=== PATIENT | male | born 1980 | race Caucasian/White ===

== ENCOUNTER 2017-06-29 09:39 | Emergency (ER) | payer OTHER ==
--- NOTE | 2017-06-29 11:06 | EDPHY ---
H & P Stated Complaint: Flu sxs x several days Source: Patient Exam Limitations: No limitations - Personal History Current Tetanus Diphtheria and Acellular Pertussis (TDAP): Yes - Medical/Surgical History Other PMH: Hodgkins lymphoma - Social History Smoking Status: Never smoked Time Seen by Provider: 06/29/17 11:05 HPI/ROS: HPI: This is a 36-year-old male presents with Chief Complaint: Flu sxs x several days Location: Body Quality: Aches Duration: 2-3 days Signs and Symptoms: + fever, no nausea, no vomiting, no diarrhea, no back pain, no urinary symptoms, no testicular/groin pain, no indigestion, no chest pain, no shortness of breath, + cough, + nasal congestion, + fatigue, + postnasal drip Timing: Sudden onset, constant Severity: Moderate to severe Context: Patient is here with his who has similar complaints, reports that on he started to experience a tickle in the back of his throat accompanied by fatigue and low-grade fever. Friday he had nasal congestion and sinus pressure accompanied by low-grade fever. Friday he started with body aches and fatigue and dried nonproductive cough. He reports his appetite is decreased. Did not receive his influenza vaccine this year. No history of asthma/COPD/tobacco use. Modifying Factors: NyQuil, Tylenol transient relief Comment: ROS: see HPI Constitutional: + fever, + chills, no weight loss Eyes: No blurred vision Respiratory: No shortness of breath, +cough Cardiovascular: No chest pain, no palpitations Gastrointestinal: No nausea, no vomiting, no diarrhea, no hematemesis, no blood in stool Genitourinary: No dysuria, no blood in urine Extremities: No myalgias, no edema Neurologic: No weakness, no numbness Skin: No rashes, no petechiae Hematologic: No bruising, no bleeding MEDICAL/SURGICAL/SOCIAL HISTORY: Medical history: Hodgkin's lymphoma, BPH Surgical history: Denies Social history: CONSTITUTIONAL: Very pleasant adult white male, awake and alert, no obvious distress HEENT: Atraumatic and normocephalic, PERRL, EOMI. Tympanic membranes clear. Oropharynx clear, no exudate and moist pink mucosa. Airway patent. No lymphadenopathy. No meningismus. Cardiovascular: Normal S1/S2, mild tachycardia, regular rhythm, without murmur rub or gallop. PULMONARY/CHEST: Symmetrical and nontender. Clear to auscultation bilaterally. Good air movement. No accessory muscle usage. ABDOMEN: Soft, nondistended, nontender, no rebound, no guarding, no peritoneal signs, no masses or organomegaly. No CVAT. EXTREMITIES: 2/2 pulses, strength 5/5, no deformities, no clubbing, no cyanosis or edema. NEUROLOGICAL: no focal neuro deficits. GCS 15. SKIN: Warm and dry, no erythema. no rash. Good capillary refill. (Alla García) Constitutional: Initial Vital Signs Temperature (C) 37.3 C 06/29/17 09:45 Heart Rate 118 H 06/29/17 09:45 Respiratory Rate 18 06/29/17 09:45 Blood Pressure 125/84 H 06/29/17 09:45 O2 Sat (%) 96 06/29/17 09:45 O2 Delivery Mode Room Air Allergies/Adverse Reactions: No Known Allergies Allergy (Unverified 06/29/17 09:52) Home Medications: Medication Instructions Recorded Codeine Phosphate/Guaifenesin 10 ml PO Q4 PRN #120 ml 06/29/17 [Guaifen-Codeine 200-20 mg/10Ml] Cyclobenzaprine [Flexeril 10 MG 10 mg PO TID PRN #10 tab 06/29/17 (*)] Tamsulosin HCl [Flomax 0.4 MG (*)] 0.4 mg PO 06/29/17 Medical Decision Making ED Course/Re-evaluation: Chest x-ray, labs, IV fluids, influenza, IV medications ordered Mild tachycardia noted upon arrival. Given 1 L normal saline, IV Toradol and Tessalon Perles with adequate relief Influenza A positive Symptoms 40-72 hours; no longer Tamiflu candidate; advised supportive care Chest x-ray my read signs of pneumonia, effusion, pneumothorax, widened mediastinum Labs grossly unremarkable 1300: reassessed patient, who advises he feels considerably better. This patient was seen under the supervision of my secondary supervising physician. I evaluated care for this patient independently. Discussed this patient with Dr. Ortiz who did not see the patient. (Alla García) The patient was evaluated and managed by the physician assistant auto center manager. I have reviewed this chart and I agree with the findings and plan of care as documented , as indicated by my signature. I am the secondary supervising physician. ( Nohelia Ortiz) Differential Diagnosis: Adult fever including but not limited to viral syndromes including influenza, urinary tract infection, pneumonia and sepsis. (Alla García) - Data Points Laboratory Results: Laboratory Results 06/29/17 11:29 06/29/17 11:29 Medications Given: Discontinued Medications Benzonatate (Tessalon Pearles) 200 mg PO EDNOW ONE Stop: 06/29/17 11:14 Last Admin: 06/29/17 11:36 Dose: 200 mg Sodium Chloride (Ns) 1,000 mls @ 0 mls/hr IV ONCE ONE; Wide Open PRN Reason: Protocol Stop: 06/29/17 11:13 Last Admin: 06/29/17 11:35 Dose: 1,000 mls Ketorolac Tromethamine (Toradol) 30 mg IVP EDNOW ONE Stop: 06/29/17 11:14 Last Admin: 06/29/17 11:35 Dose: 30 mg Ondansetron HCl (Zofran) 4 mg IVP EDNOW ONE Stop: 06/29/17 11:34 Last Admin: 06/29/17 11:35 Dose: 4 mg Departure - Departure Disposition: Home, Routine, Self-Care Clinical Impression: Influenza A Condition: Good Instructions: Influenza (ED) Additional Instructions: You tested positive for influenza A today in the emergency room. Unfortunately you are not a candidate for Tamiflu. Please rest as much as possible and drink plenty of fluids to prevent dehydration. Take Tylenol 650 mg every 4 hours and/or Ibuprofen 600 mg every 8 hours with food as needed for pain. Take Sudafed every 6 hr as needed for nasal congestion/sinus pressure. Referrals: PETER REYES [Other] - As per Instructions Prescriptions: Codeine Phosphate/Guaifenesin [Guaifen-Codeine 200-20 mg/10Ml] 10 ml PO Q4 PRN # 120 ml PRN Reason: Cough, Moderate Cyclobenzaprine [Flexeril 10 MG (*)] 10 mg PO TID PRN #10 tab PRN Reason: Spasms
[2017-06-29] MEDS ORDERED: NS 1,000 ML IV ONE (11:12)
[2017-06-29] MEDS ORDERED: BENZONATATE 100 MG CAP PO ONE (11:13)
[2017-06-29] MEDS ORDERED: KETOROLAC 30 MG/1 ML SDV IVP ONE (11:13)
[2017-06-29] MEDS ORDERED: ONDANSETRON 4 MG/2 ML VIAL IVP ONE (11:33)
[2017-06-29] MEDS ORDERED: ONDANSETRON 4 MG/2 ML VIAL ONE (11:33)
[2017-06-29 11:37] LABS: PLATELET COUNT 163 10^3/uL (150-400)
[2017-06-29 12:36] VITALS: BP 101/62; PULSE 100; RESP 22; TEMP 99.3; O2SAT 93
== END 2017-06-29 13:15 | disposition home or self-care (01) ==
DX: J10.1 Influenza due to other identified influenza virus with other respiratory manifestations (principal); E86.9 Volume depletion, unspecified; Z85.71 Personal history of Hodgkin lymphoma
CPT/HCPCS: 96374; J1885; J2405